=== PATIENT | male | born 1960 | race American Indian/Alaskan Native ===

== ENCOUNTER 2020-01-28 18:24 | Observation (INO) | payer OTHER ==
[2020-01-28] MEDS ORDERED: levETIRAcetam 1000 MG/NS 0.75% 1,000 MG/100 ML BAG IV ONE (18:37)
--- NOTE | 2020-01-28 18:39 | Emergency Department Report ---
ED Seizure HPI - General Chief Complaint: Seizure Stated Complaint: SEIZURE Time Seen by Provider: 01/28/20 18:27 Source: patient, EMS Mode of arrival: Stretcher Limitations: No Limitations - History of Present Illness Initial Comments: Patient is a 59-year-old male that presents emergency room with seizure activity. Patient states he was at work and next he knows he woke up on the floor. Patient states he hit his head on his workbench. Patient has never had a seizure. Patient has no history of seizures. Patient does not complain of headache or head pain. Patient complains of left elbow pain. Patient brought in by EMS. Report received from EMS. EMS states that he lost control of urine during the seizure and the seizure was witnessed by his coworkers. Coworker stated he has had in his elbow on his workstation. EMS describes the seizure as a grand mal seizure with post ictal and loss of consciousness. MD Complaint: seizure -: Sudden Description of Episode: loss of consciousness, tonic-clonic movement, bladder incontinence -: second(s) Witnessed:: Yes Trauma: Yes Seizure History: none Place: work Possible Precipitating Event: none Associated Symptoms: confusion. denies: chest pain, cough, diaphoresis, fever/chills, loss of appetite, malaise, rash, shortness of breath, syncope, weakness, tongue injury, shoulder dislocation Treatments Prior to Arrival: none - Related Data Allergies Allergy/AdvReac Type Severity Reaction Status Date / Time No Known Allergies Allergy Unverified 01/28/20 19:09 ED Review of Systems ROS: Stated complaint: SEIZURE Other details as noted in HPI Constitutional: denies: chills, fever Eyes: denies: eye pain, eye discharge, vision change ENT: denies: ear pain, throat pain Respiratory: denies: cough, shortness of breath, wheezing Cardiovascular: denies: chest pain, palpitations Endocrine: no symptoms reported Gastrointestinal: denies: abdominal pain, nausea, diarrhea Genitourinary: denies: urgency, dysuria Musculoskeletal: denies: back pain, joint swelling, arthralgia Skin: denies: rash, lesions Neurological: as per HPI. denies: headache, weakness, paresthesias Psychiatric: denies: anxiety, depression Hematological/Lymphatic: denies: easy bleeding, easy bruising ED Past Medical Hx - Past Medical History Previous Medical History?: No - Surgical History Past Surgical History?: No - Family History Family history: no significant - Social History Smoking Status: Never Smoker Substance Use Type: None ED Physical Exam - General Limitations: No Limitations General appearance: alert, in no apparent distress - Head Head exam: Present: atraumatic, normocephalic - Eye Eye exam: Present: normal appearance, PERRL, periorbital swelling (Above left eye), periorbital tenderness (Above left eye), other (Abrasion noted above left eye.) Pupils: Present: normal accommodation - ENT ENT exam: Present: mucous membranes moist - Neck Neck exam: Present: normal inspection - Respiratory Respiratory exam: Present: normal lung sounds bilaterally. Absent: respiratory distress, wheezes, rales - Cardiovascular Cardiovascular Exam: Present: regular rate, normal rhythm. Absent: systolic murmur, diastolic murmur, rubs, gallop - GI/Abdominal GI/Abdominal exam: Present: soft, normal bowel sounds. Absent: distended, tenderness, guarding - Rectal Rectal exam: Present: deferred - Extremities Exam Extremities exam: Present: normal inspection - Back Exam Back exam: Present: normal inspection - Neurological Exam Neurological exam: Present: alert, oriented X3 - Psychiatric Psychiatric exam: Present: normal affect, normal mood - Skin Skin exam: Present: warm, dry, normal color, abrasion (Noted above left eye). Absent: rash ED Course Vital Signs 01/28/20 01/28/20 01/28/20 19:16 19:18 19:31 Temperature 97.9 F Pulse Rate 75 73 Respiratory 16 15 Rate Blood Pressure 143/89 Blood Pressure 143/89 [Right] O2 Sat by Pulse 97 98 97 Oximetry 01/28/20 01/28/20 01/28/20 19:49 20:01 20:15 Temperature Pulse Rate 71 63 67 Respiratory 16 16 15 Rate Blood Pressure 143/89 102/72 143/89 Blood Pressure [Right] O2 Sat by Pulse 95 96 97 Oximetry 01/28/20 01/28/20 01/28/20 20:31 20:45 20:53 Temperature Pulse Rate 71 66 76 Respiratory 14 14 17 Rate Blood Pressure 143/89 143/89 143/89 Blood Pressure [Right] O2 Sat by Pulse 98 98 98 Oximetry 01/28/20 01/28/20 01/28/20 21:00 21:11 21:21 Temperature Pulse Rate 65 62 66 Respiratory 17 13 16 Rate Blood Pressure 123/87 123/87 123/87 Blood Pressure [Right] O2 Sat by Pulse 99 97 97 Oximetry 01/28/20 01/28/20 01/28/20 21:31 21:40 21:51 Temperature Pulse Rate 67 66 62 Respiratory 14 10 L 14 Rate Blood Pressure 123/87 123/87 123/87 Blood Pressure [Right] O2 Sat by Pulse 96 99 99 Oximetry 01/28/20 01/28/20 01/28/20 22:00 22:11 22:21 Temperature Pulse Rate 67 62 64 Respiratory 16 14 13 Rate Blood Pressure 123/93 123/93 123/93 Blood Pressure [Right] O2 Sat by Pulse 96 97 97 Oximetry 01/28/20 01/28/20 01/28/20 22:31 22:41 22:51 Temperature Pulse Rate 66 65 63 Respiratory 14 13 16 Rate Blood Pressure 123/93 123/93 123/93 Blood Pressure [Right] O2 Sat by Pulse 97 97 96 Oximetry 01/28/20 01/28/20 01/28/20 23:00 23:02 23:11 Temperature 98.2 F Pulse Rate 63 66 69 Respiratory 12 18 13 Rate Blood Pressure 124/86 124/86 Blood Pressure 123/87 [Right] O2 Sat by Pulse 97 98 97 Oximetry 01/28/20 01/28/20 01/28/20 23:21 23:31 23:41 Temperature Pulse Rate 61 61 64 Respiratory 10 L 12 16 Rate Blood Pressure 124/86 124/86 124/86 Blood Pressure [Right] O2 Sat by Pulse 97 96 98 Oximetry 01/28/20 23:51 Temperature Pulse Rate 59 L Respiratory 12 Rate Blood Pressure 124/86 Blood Pressure [Right] O2 Sat by Pulse 97 Oximetry - Reevaluation(s) Reevaluation #1: I discussed all results with patient. I discussed plan of care with patient. Patient agrees with plan of care and admission. Patient to be admitted to the hospitalist service. 01/28/20 20:35 - Consultations Consultation #1: Hospitalist consulted for admission. Hospitalist to admit patient. 01/28/20 20:35 ED Medical Decision Making - Lab Data Result diagrams: 01/28/20 19:11 01/28/20 19:11 - EKG Data -: EKG Interpreted by Me EKG shows normal: sinus rhythm, axis, intervals, QRS complexes, ST-T waves Rate: normal - Radiology Data Radiology results: report reviewed CT facial bones wo con INDICATION / CLINICAL INFORMATION: 59 years Male; head injury. facial trauma. facial contusion. TECHNIQUE: Thin cut axial images obtained. Sagittal and coronal reconstructions performed. All CT scans at this location are performed using CT dose reduction for ALARA by means of autom ated exposure control. COMPARISON: None available. FINDINGS: Soft tissue swelling is seen in the left lateral orbital region. No signs of underlying facial fracture identified. The globes and retro-orbital structures are normal in appearance bilaterally. Mild mucosal thickening is seen in the ethmoids. Remainder the visualized paranasal sinuses and mastoid air cells are clear. There is canal narrowing at C3-4 from disc disease anteriorly, which slightly encroaches upon the cervical cord. No definitive signs of impingement appreciated. Mild to moderate osseous foraminal narrowing seen bilaterally at this level from uncinate hypertrophy. IMPRESSION: 1. No signs of acute bony facial trauma appreciated CT head/brain wo con INDICATION / CLINICAL INFORMATION: 59 years Male; Seizure. TECHNIQUE: Routine CT head without contrast. All CT scans at this location are performed using CT dose reduction for ALARA by means of automated exposure control. COMPARISON: None. FINDINGS: BRAIN / INTRACRANIAL CONTENTS: Small, branch PICA territory infarcts are seen on the [id number] without diffusion imaging by MRI. Otherwise, no acute hemorrhage, mass effect, midline shift, hydrocephalus, or acute, large territorial infarct. No chronic infarct or atrophy appreciated. There are mild areas of decreased attenuation in the white matter of the cerebral hemispheres. These are nonspecific findings and may be related to microangiopathy (hype rtension, diabetes, a therosclerosis), given the patient's age. CRANIOCERVICAL JUNCTION: No significant abnormality. ORBITS: No significant abnormality of visualized orbits. SINUSES / MASTOIDS: No significant abnormality in the visualized paranasal sinuses or mastoid air cells. ADDITIONAL FINDINGS: Mild soft tissue swelling seen in the left periorbital region. No definitive signs of underlying fracture appreciated. IMPRESSION: 1. No focal mass, intracranial hemorrhage, hydrocephalus, or acute, large territorial infarct. 2. I cannot exclude subacute, small branch PICA territory infarcts on the left, as described above. - Medical Decision Making Patient is a 59-year-old male that presents emergency room for new onset seizures, head injury, facial abrasion, facial trauma, loss of bladder control, confusion. Patient does not have a history of seizure. Patient had a new seizure work-up. Patient CT of the facial bones and head was negative for acute findings. Patient's labs are unremarkable. Patient admitted to the hospital service for further evaluation treatment. Patient did not have any seizure activity in the ER. Patient given Keppra in the ER. - Differential Diagnosis Head injury, fall, facial trauma, facial contusion, new onset seizure, Critical Care Time: Yes Critical care time in (mins) excluding proc time.: 35 Critical care attestation.: If time is entered above; I have spent that time in minutes in the direct care o f this critically ill patient, excluding procedure time. Critical Care Time: 35 minutes ED Disposition Clinical Impression: New onset seizure, Seizure-like activity Head injury Qualifiers: Encounter type: initial encounter Qualified Code(s): S09.90XA - Unspecified injury of head, initial encounter Facial trauma Qualifiers: Encounter type: initial encounter Qualified Code(s): S09.93XA - Unspecified injury of face, initial encounter Facial contusion Qualifiers: Encounter type: initial encounter Qualified Code(s): S00.83XA - Contusion of other part of head, initial encounter Facial abrasion Qualifiers: Encounter type: initial encounter Qualified Code(s): S00.81XA - Abrasion of other part of head, initial encounter Disposition: DC-09 OP ADMIT IP TO THIS HOSP Is pt being admited?: Yes Does the pt Need Aspirin: No Condition: Critical Time of Disposition: 20:37
[2020-01-28 19:39] LABS: Basophils % (Auto) 0.5 % (0.0-1.8); Eosinophils % (Auto) 0.4 % (0.0-4.3); Hematocrit 45.5 % (35.5-45.6); Hemoglobin 14.8 gm/dl (11.8-15.2); Lymphocytes # (Auto) 0.7 K/mm3 (1.2-5.4); Lymphocytes % (Auto) 9.5 % (13.4-35.0); Mean Corpuscular HGB Conc 33 % (32-34); Mean Corpuscular Volume 96 fl (84-94); Monocytes # (Auto) 0.4 K/mm3 (0.0-0.8); Monocytes % (Auto) 5.7 % (0.0-7.3); Platelet Count 193 K/mm3 (140-440); Red Blood Count 4.76 M/mm3 (3.65-5.03); Red Cell Distribution Width 14.6 % (13.2-15.2)
[2020-01-28 19:55] LABS: Alanine Aminotransferase 17 units/L (7-56); BUN/Creatinine Ratio 11; Blood Urea Nitrogen 10 mg/dL (9-20); Calcium 8.9 mg/dL (8.4-10.2); Hemolysis Index 11
--- NOTE | 2020-01-28 20:03 | Cat Scan Report ---
CT head/brain wo con INDICATION / CLINICAL INFORMATION: 59 years Male; Seizure. TECHNIQUE: Routine CT head without contrast. All CT scans at this location are performed using CT dos e reduction for ALARA by means of automated exposure control. COMPARISON: None. FINDINGS: BRAIN / INTRACRANIAL CONTENTS: Small, branch PICA territory infarcts are seen on the [id number]-hthlzxb minate without diffusion imaging by MRI. Otherwise, no acute hemorrhage, mass effect, midline shift, hydrocephalus, or acute, large territori al infarct. No chronic infarct or atrophy appreciated. There are mild areas of decreased attenuation in the white matter of the cerebral hemispheres. These are nonspecific findings and may be related to microangiopathy (hypertension, diabetes, atheroscleros is), given the patient's age. CRANIOCERVICAL JUNCTION: No significant abnormality. ORBITS: No significant abnormality of visualized orbits. SINUSES / MASTOIDS: No significant abnormality in the visualized paranasal sinuses or mastoid air gladis ls. ADDITIONAL FINDINGS: Mild soft tissue swelling seen in the left periorbital region. No definitive sig ns of underlying fracture appreciated. IMPRESSION: 1. No focal mass, intracranial hemorrhage, hydrocephalus, or acute, large territorial infarct. 2. I cannot exclude subacute, small branch PICA territory infarcts on the left, as described above. Signer Name: Mj Parrish MD, III Signed: 01/28/2020 7:59 PM Workstation Name: [id number]
--- NOTE | 2020-01-28 20:10 | Cat Scan Report ---
CT facial bones wo con INDICATION / CLINICAL INFORMATION: 59 years Male; head injury. facial trauma. facial contusion. TECHNIQUE: Thin cut axial images obtained. Sagittal and coronal reconstructions performed. All CT scans at this location are performed using CT dose reduction for ALARA by means of automated exposure control. COMPARISON: None available. FINDINGS: Soft tissue swelling is seen in the left lateral orbital region. No signs of underlying facial fractu re identified. The globes and retro-orbital structures are normal in appearance bilaterally. Mild mucosal thickening is seen in the ethmoids. Remainder the visualized paranasal sinuses and masto id air cells are clear. There is canal narrowing at C3-4 from disc disease anteriorly, which slightly encroaches upon the cer vical cord. No definitive signs of impingement appreciated. Mild to moderate osseous foraminal narrow ing seen bilaterally at this level from uncinate hypertrophy. IMPRESSION: 1. No signs of acute bony facial trauma appreciated. Signer Name: Mj Parrish MD, III Signed: 01/28/2020 8:05 PM Workstation Name: [id number]
[2020-01-28] MEDS ORDERED: MAGNESIUM HYDROXIDE (MOM) ORAL LIQD UDC PO PRN (21:51)
[2020-01-28] MEDS ORDERED: ACETAMINOPHEN 325 MG TAB PO PRN (21:51)
[2020-01-28] MEDS ORDERED: ONDANSETRON 4 MG/2 ML INJ IV PRN (21:51)
--- NOTE | 2020-01-28 22:02 | History and Physical Report ---
History of Present Illness Date of examination: 01/28/20 Date of admission: 01/28/20 21:17 Chief complaint: Seizure disorder History of present illness: 59-year-old -[place] male was brought into the emergency room today having had a seizure activity while at work. He was said to have tonic-clonic seizure at work and hit his head against a workbench. He was said to have had urinary incontinence during seizure activity. Seizure activity was said to be tonic-clonic and was witnessed by alcohol workers. Patient had a post ictal period with a loss of consciousness. Patient denies any history of seizure disorder. He denies any use of illicit drugs. He denied any history of headache or dizziness prior to the seizure activity. He denies any fever or chills, no chest pain or shortness of breath, no nausea vomiting, no diarrhea. Upon arrival in the emergency room patient was evaluated by the tele neurologist and recommendation is to have patient worked up for seizure disorder. He had a CT scan of the head which had questionable findings suggestive of possible subacute CVA. Past History Past Medical History: No medical history Past Surgical History: No surgical history Social history: no significant social history Family history: no significant family history Medications and Allergies Allergies Allergy/AdvReac Type Severity Reaction Status Date / Time No Known Allergies Allergy Unverified 01/28/20 19:09 Active Meds: Active Medications Acetaminophen (Tylenol) 650 mg PO Q4H PRN PRN Reason: Pain MILD(1-3)/Fever >100.5/HERNANDEZ Heparin Sodium (Porcine) (Heparin) 5,000 unit SUB-Q Q8HR JORDAN Levetiracetam 500 mg/ Dextrose 105 mls @ 400 mls/hr IV Q12HR JORDAN Magnesium Hydroxide (Milk Of Magnesia) 30 ml PO Q4H PRN PRN Reason: Constipation Ondansetron HCl (Zofran) 4 mg IV Q8H PRN PRN Reason: Nausea And Vomiting Sodium Chloride (Sodium Chloride Flush Syringe 10 Ml) 10 ml IV BID JORDAN Sodium Chloride (Sodium Chloride Flush Syringe 10 Ml) 10 ml IV PRN PRN PRN Reason: LINE FLUSH Review of Systems Constitutional: no fever, no chills Ears, nose, mouth and throat: no nasal congestion, no sore throat Cardiovascular: no chest pain, no palpitations Respiratory: no cough, no shortness of breath Gastrointestinal: no abdominal pain, no nausea, no vomiting, no diarrhea Genitourinary Male: no dysuria, no hematuria, no flank pain Musculoskeletal: no neck pain, no low back pain Integumentary: no rash, no pruritis Neurological: no headaches, no confusion Psychiatric: no anxiety, no confusion Exam - Constitutional Vitals: Temp Pulse Resp BP Pulse Ox 97.9 F 66 14 143/89 98 01/28/20 19:18 01/28/20 20:45 01/28/20 20:45 01/28/20 20:45 01/28/20 20:45 General appearance: Present: other (Abrasion over left eyebrow.). Absent: no acute distress - EENT Eyes: Absent: PERRL, EOM intact, scleral icterus ENT: no hearing intact, no clear oral mucosa, no dentition normal - Neck Neck: Absent: supple, normal ROM - Respiratory Respiratory effort: normal Respiratory: bilateral: CTA - Cardiovascular Rhythm: regular Heart Sounds: Present: S1 & S2. Absent: systolic murmur, diastolic murmur - Extremities Extremities: no ischemia, pulses intact, pulses symmetrical, No edema, Full ROM Peripheral Pulses: within normal limits - Abdominal General gastrointestinal: Present: soft, non-tender, non-distended - Integumentary Integumentary: Present: clear, warm, dry - Musculoskeletal Musculoskeletal: strength equal bilaterally - Psychiatric Psychiatric: appropriate mood/affect, intact judgment & insight, memory intact, cooperative - Neurologic Neurologic: CNII-XII intact, no focal deficits, moves all extremities Results - Labs CBC & Chem 7: 01/28/20 19:11 01/28/20 19:11 Labs: Abnormal lab results 01/28/20 01/28/20 Range/Units 19:11 19:11 MCV 96 H (84-94) fl Lymph % (Auto) 9.5 L (13.4-35.0) % Lymph # 0.7 L (1.2-5.4) K/mm3 Seg Neutrophils % 83.9 H (40.0-70.0) % Glucose 103 H (75-100) mg/dL Assessment and Plan - Patient Problems (1) New onset seizure Current Visit: Yes Status: Acute Plan to address problem: Patient has been started on Keppra and will be placed on seizure precautions. We will schedule patient for EEG. We will also request neurology follow-up. (2) Facial abrasion Current Visit: Yes Status: Acute Qualifiers: Encounter type: initial encounter Qualified Code(s): S00.81XA - Abrasion of other part of head, initial encounter Plan to address problem: Secondary to the seizure activity. We will dress facial abrasion as needed. (3) DVT prophylaxis Current Visit: Yes Status: Acute Plan to address problem: Patient placed on subcutaneous heparin. (4) Full code status Current Visit: Yes Status: Acute
[2020-01-28] MEDS: levETIRAcetam 500 MG in DEXTROSE 5% IN WATER 100 ML IV SCH (22:03)
[2020-01-28] MEDS ORDERED: HEPARIN 5,000 UNIT/1 ML VIAL ONE (23:12)
[2020-01-28] MEDS: HEPARIN 5,000 UNIT/1 ML VIAL SUB-Q SCH (23:17)
[2020-01-29] MEDS: HEPARIN 5,000 UNIT/1 ML VIAL SUB-Q SCH ×3 (06:03→21:49)
[2020-01-29 08:00] LABS: Basophils % (Auto) 0.8 % (0.0-1.8); Eosinophils # (Auto) 0.1 K/mm3 (0.0-0.4); Eosinophils % (Auto) 1.6 % (0.0-4.3); Hematocrit 43.3 % (35.5-45.6); Hemoglobin 14.9 gm/dl (11.8-15.2); Lymphocytes # (Auto) 1.1 K/mm3 (1.2-5.4); Mean Corpuscular HGB Conc 35 % (32-34); Mean Corpuscular Volume 95 fl (84-94); Monocytes # (Auto) 0.4 K/mm3 (0.0-0.8); Monocytes % (Auto) 7.2 % (0.0-7.3); Platelet Count 189 K/mm3 (140-440); Red Blood Count 4.57 M/mm3 (3.65-5.03); Red Cell Distribution Width 14.4 % (13.2-15.2)
[2020-01-29 08:20] LABS: BUN/Creatinine Ratio 10; Blood Urea Nitrogen 8 mg/dL (9-20); Calcium 8.6 mg/dL (8.4-10.2); Hemolysis Index 4
[2020-01-29 08:36] LABS: INR 1.18 (0.87-1.13)
--- NOTE | 2020-01-29 09:00 | Progress Note ---
Assessment and Plan Assessment and plan: New onset seizure. Neurology consultation pending. Follow-up EEG and MRI. Continue Keppra. Facial abrasion. Wound care. DVT prophylaxis. Continue subcutaneous heparin. History Interval history: No new seizure activity. Hospitalist Physical - Constitutional Vitals: Temp Pulse Resp BP Pulse Ox 98.0 F 58 L 18 118/82 97 01/29/20 04:23 01/29/20 04:23 01/29/20 04:23 01/29/20 04:23 01/29/20 04:23 General appearance: Present: other (Abrasion over left eyebrow.). Absent: no acute distress - EENT Eyes: Present: PERRL, EOM intact ENT: hearing intact, clear oral mucosa, dentition normal - Neck Neck: Present: supple, normal ROM - Respiratory Respiratory effort: normal Respiratory: bilateral: CTA - Cardiovascular Rhythm: regular Heart Sounds: Present: S1 & S2. Absent: gallop, rub - Extremities Extremities: no ischemia, No edema, Full ROM - Abdominal General gastrointestinal: soft, non-tender, non-distended, normal bowel sounds - Integumentary Integumentary: Present: clear, warm, dry - Neurologic Neurologic: CNII-XII intact, moves all extremities Results - Labs CBC & Chem 7: 01/29/20 07:29 01/29/20 07:29 Labs: Laboratory Last Values WBC 5.7 K/mm3 (4.5-11.0) 01/29/20 07:29 RBC 4.57 M/mm3 (3.65-5.03) 01/29/20 07:29 Hgb 14.9 gm/dl (11.8-15.2) 01/29/20 07:29 Hct 43.3 % (35.5-45.6) 01/29/20 07:29 MCV 95 fl (84-94) H 01/29/20 07: MCH 33 pg (28-32) H 01/29/20 07: MCHC 35 % (32-34) H 01/29/20 07:29 RDW 14.4 % (13.2-15.2) 01/29/20 07:29 Plt Count 189 K/mm3 (140-440) 01/29/20 07: Lymph % (Auto) 19.0 % (13.4-35.0) 01/29/20 07:29 [place] % (Auto) 7.2 % (0.0-7.3) 01/29/20 07: Eos % (Auto) 1.6 % (0.0-4.3) 01/29/20 07:29 Baso % (Auto) 0.8 % (0.0-1.8) 01/29/20 07: Lymph # 1.1 K/mm3 (1.2-5.4) L 01/29/20 07: [place] # 0.4 K/mm3 (0.0-0.8) 01/29/20 07: Eos # 0.1 K/mm3 (0.0-0.4) 01/29/20 07: Baso # 0.0 K/mm3 (0.0-0.1) 01/29/20 07: Seg Neutrophils % 71.4 % (40.0-70.0) H 01/29/20 07: Seg Neutrophils # 4.0 K/mm3 (1.8-7.7) 01/29/20 07: PT 14.8 Sec. (12.2-14.9) 01/29/20 07: INR 1.18 (0.87-1.13) H 01/29/20 07: Sodium 139 mmol/L (137-145) 01/29/20 07: Potassium 3.8 mmol/L (3.6-5.0) 01/29/20 07: Chloride 104.0 mmol/L (98-107) 01/29/20 07: Carbon Dioxide 25 mmol/L (22-30) 01/29/20 07:29 Anion Gap 14 mmol/L 01/29/20 07:29 BUN 8 mg/dL (9-20) L 01/29/20 07: Creatinine 0.8 mg/dL (0.8-1.5) 01/29/20 07:29 Estimated GFR > 60 ml/min 01/29/20 07:29 BUN/Creatinine Ratio 10 % 01/29/20 07: Glucose 99 mg/dL (75-100) 01/29/20 07: Calcium 8.6 mg/dL (8.4-10.2) 01/29/20 07: Total Bilirubin 0.50 mg/dL (0.1-1.2) 01/28/20 19:11 AST 21 units/L (5-40) 01/28/20 19:11 ALT 17 units/L (7-56) 01/28/20 19:11 Alkaline Phosphatase 42 units/L (35-129) 01/28/20 19:11 Total Protein 6.5 g/dL (6.3-8.2) 01/28/20 19:11 Albumin 4.0 g/dL (3.9-5) 01/28/20 19:11 Albumin/Globulin Ratio 1.6 % 01/28/20 19:11 Lo/IV: Voiding Method Urinal IV Catheter Type [Left Hand] INT / Saline Lock Active Medications - Current Medications Current Medications: Generic Name Dose Route Start Last Admin Trade Name Freq PRN Reason Stop Dose Admin Acetaminophen 650 mg 01/28/20 21:51 Tylenol PO Q4H PRN Pain MILD(1-3)/Fever >100.5/HERNANDEZ Heparin Sodium (Porcine) 5,000 unit 01/28/20 22:00 01/29/20 06:03 Heparin SUB-Q 5,000 unit Q8HR JORDAN Administration Levetiracetam 500 mg/ Dextrose 105 mls @ 400 mls/hr 01/28/20 22:00 01/28/20 22:03 IV 400 mls/hr Q12HR JORDAN Administration Magnesium Hydroxide 30 ml 01/28/20 21:51 Milk Of Magnesia PO Q4H PRN Constipation Ondansetron HCl 4 mg 01/28/20 21:51 Zofran IV Q8H PRN Nausea And Vomiting Sodium Chloride 10 ml 01/28/20 22:00 01/28/20 22:03 Sodium Chloride Flush Syringe 10 Ml IV 10 ml BID JORDAN Administration Sodium Chloride 10 ml 01/28/20 21:51 Sodium Chloride Flush Syringe 10 Ml IV PRN PRN LINE FLUSH
[2020-01-29] MEDS ORDERED: LORazepam 2 MG/ML VIAL IV ONE (11:00)
[2020-01-29] MEDS: levETIRAcetam 500 MG in DEXTROSE 5% IN WATER 100 ML IV SCH (13:06)
--- NOTE | 2020-01-29 14:40 | Consultation ---
History of Present Illness Consult date: 01/29/20 Reason for Consult: Seizure Chief complaint: Seizure History of present illness: Patient is a 59 y/o man w/ no PMH. He presented yesterday after was noted to have what was described as a tonic clonic seizure while at work. Patient reportedly had convulsions, a/w loss of bladder control, and hit his head on a bench during the seizure. Patient was also noted to have post-ictal confusion. He was brought to [facility] for further evaluation. He states that he moved to [place] in February 2019, and he believes he has had 2 previous episodes of LOC since that time, during which he found himself on the floor. Those previous e pisodes were not related loss of bowel/bladder control or tongue biting. Past History Past Medical History: No medical history Past Surgical History: No surgical history Social history: no significant social history Family history: no significant family history Medications and Allergies Allergies Allergy/AdvReac Type Severity Reaction Status Date / Time No Known Allergies Allergy Unverified 01/28/20 19:09 Active Meds: Active Medications Acetaminophen (Tylenol) 650 mg PO Q4H PRN PRN Reason: Pain MILD(1-3)/Fever >100.5/HERNANDEZ Heparin Sodium (Porcine) (Heparin) 5,000 unit SUB-Q Q8HR [facility] Last Admin: 01/29/20 14:25 Dose: 5,000 unit Documented by: Levetiracetam 500 mg/ Dextrose 105 mls @ 400 mls/hr IV Q12HR [facility] Last Admin: 01/29/20 13:06 Dose: 400 mls/hr Documented by: Magnesium Hydroxide (Milk Of Magnesia) 30 ml PO Q4H PRN PRN Reason: Constipation Ondansetron HCl (Zofran) 4 mg IV Q8H PRN PRN Reason: Nausea And Vomiting Sodium Chloride (Sodium Chloride Flush Syringe 10 Ml) 10 ml IV BID [facility] Last Admin: 01/29/20 13:06 Dose: 10 ml Documented by: Sodium Chloride (Sodium Chloride Flush Syringe 10 Ml) 10 ml IV PRN PRN PRN Reason: LINE FLUSH Review of Systems All systems: negative Neurological: seizures Physical Examination - Vital Signs Vital Signs: Vital Signs Pulse Ox 97 01/28/20 19:16 - Physical Exam Narrative exam: Patient is alert, awake, oriented x4, follows complex commands. No dysarthria or aphasia noted. PERRL, EOMI, VFF, tongue midline, bilaterally intact to LT, no facial weakness noted. 5/5 strength in all extremities. Bilaterally intact light touch. Bilaterally intact to FTN and HTS. Results - Laboratory Findings CBC and BMP: 01/29/20 07:29 01/29/20 07:29 Abnormal Lab Findings: Abnormal Labs 01/28/20 01/28/20 01/29/20 19:11 19:11 07:29 MCV 96 H 95 H MCH 33 H MCHC 35 H Lymph % (Auto) 9.5 L Lymph # 0.7 L 1.1 L Seg Neutrophils % 83.9 H 71.4 H INR BUN Glucose 103 H 01/29/20 01/29/20 07:29 07:29 MCV MCH MCHC Lymph % (Auto) Lymph # Seg Neutrophils % INR 1.18 H BUN 8 L Glucose Assessment and Plan Patient is a 59 y/o man w/ no PMH who p/w episode of LOC and convulsions. According to the patient's clinical findings, it is likely that he has had a seizure. Plan: 1. Seizure: - CT head: No acute abnormalities. - Check EEG- to be interpreted by in-house neurologist. - Check MRI brain: on initial review does not appear to have any acute ab normalities. Final report pending from radiology. - Discussed with patient regarding starting keppra. Discussed risks/benefits, and patient agreed to continuing keppra. - Discussed with patient regarding no driving until cleared by DMV/DPS. Patient understood and accepted this. Further discussed seizure precautions. - If patient has a seizure lasting >2 minutes, recommend giving ativan 1mg IV s tat. If seizure does not resolve within 2 minutes, can repeat x1. Please call primary team and neurology stat if patient has a seizure. - Recommend for patient to follow up with neurologist in clinic in 3-4 weeks. - Will sign off, as I am not covering neurology service over the weekend. Please consult neurologist covering the service over the weekend for further neurologic monitoring and management. Thank you for allowing me to take part in the care of this patient. Russel Stein MD Neurology This clinical encounter was provided via live telemedicine platform. Consultative service was provided for neurology to support local providers. The Acute Teleneurology team should be contacted with any neurologic worsening or clinical changes, new test results, or new patient history that is reported to or discovered by the local team following completion of the teleneurology consultation, specifically that which has the potential to impact the consultative recommendations. Patient/Family was informed the Neurology Consult would happen via TeleHealth consult by way of interactive audio and video telecommunications and consented to receiving care in this manner. Due to the potential for life-threatening deterioration due to underlying neurologic illness, and limited resources available for patient care, telemedicine was used as means of patient care. Telemedicine consultation is limited in the extent of physical exam that can be virtually provided. Time spent evaluating patient includes time for face to face visit via telemedicine, review of medical records, imaging studies and discussion of findings with providers, the patient and/or family.
--- NOTE | 2020-01-29 15:08 | Magnetic Resonance Report ---
MRI BRAIN WITHOUT CONTRAST INDICATION / CLINICAL INFORMATION: SEIZURES. ABNORMAL FINDINGS ON HEAD CT.. TECHNIQUE: Multiplanar, multisequence MR images of the brain were obtained. COMPARISON: Head CT 01/28/2020 FINDINGS: BRAIN / INTRACRANIAL CONTENTS: Ventricles and cortical sulci are normal in size and configuration. Th ere is no mass effect. No evidence of intracranial hemorrhage or extra-axial fluid collection is seen . Periventricular and deep white matter hyperintensities are noted in both cerebral hemispheres consi stent with microvascular ischemic change. No additional areas of abnormal brain parenchymal signal in tensity are identified. There is no indication of remote cortical infarction. Diffusion weighted scan s are negative. There is no indication of acute ischemic injury. There is evidence of a remote small deep pontine infarction located to the left of midline. There are findings of a remote small deep infarction in the white matter of the left cerebellar hemisphere. MIDLINE STRUCTURES:No abnormalities are seen to involve the pituitary gland. Pineal region has an unr emarkable appearance. CRANIOCERVICAL JUNCTION: No abnormalities are identified at the craniocervical junction. VASCULAR FLOW-VOIDS: Normal flow-voids are present within the major intracranial vessels. ORBITS: The orbits have an unremarkable appearance. SINUSES / MASTOIDS: There is no indication of inflammatory disease in the paranasal sinuses or mastoi d air cells. IMPRESSION: 1. Moderate microvascular ischemic change. 2. No evidence of recent or remote infarction involving the cerebral hemispheres. 3. 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 Signer Name: Hawk Martin MD Signed: 01/29/2020 3:04 PM Workstation Name: [id number]
[2020-01-29] MEDS: levETIRAcetam 500 MG TAB PO SCH ×2 (17:16→21:49)
[2020-01-29 17:39] LABS: Bilirubin,Urine NEG (Negative); Blood,Urine NEG (Negative); Color,Urine Yellow (Yellow); Mucus,Urine FEW /HPF; Protein,Urine <15 mg/dL mg/dL (Negative); Urobilinogen,Urine < 2.0 mg/dL (<2.0); WBC,Urine < 1.0 /HPF (0.0-6.0)
[2020-01-29 17:47] LABS: Amphetamine Screen,Urine Negative; Benzodiazepines Screen,Urine Negative; Cocaine Screen,Urine Negative; Methadone Screen,Urine Negative; Opiate Screen,Urine Negative
[2020-01-29 18:04] LABS: Cannabinoid Screen,Urine Positive
[2020-01-30] MEDS: HEPARIN 5,000 UNIT/1 ML VIAL SUB-Q SCH (05:18)
--- NOTE | 2020-01-30 08:18 | Discharge Summary ---
Providers - Providers Date of Admission: 01/28/20 21:17 Date of discharge: 01/30/20 Attending physician: REBECCA ZAPATA 01/28/20 21:51 Consult to Physician [CONS] Routine Comment: Consulting Provider: THALIA COTTON Physician Instructions: Reason For Exam: SEIZURES- NEW ONSET Primary care physician: [employer] Hospitalization Reason for admission: New onset seizure Condition: Critical Hospital course: Patient is a 59 y/o man w/ no PMH presented on 01/28/2020 after a tonic clonic seizure while at work. Patient reportedly had convulsions, a/w loss of bladder control, and hit his head on a bench during the seizure. Patient was also noted to have post-ictal confusion. He was brought to [facility] for further evaluation. He states that he moved to [place] in February 2019, and he believes he has had 2 previous episodes of LOC since that time, during which he found himself on the floor. Those previous episodes were not related loss of bowel/bladder control or tongue biting. The patient was admitted with diagnosis of new onset seizure disorder. CT scan of the head showed no acute abnormalities. MRI did not reveal any acute findings but remote small deep pontine infarction. The patient was started on Keppra and had no further seizure activity during hospitalization. Neurology discussed with the patient regarding no driving until cleared by DMV/DPS. Patient understood and accepted this. Further discussed seizure precautions. The patient is felt to have received maximal hospital benefit. Dedicated discharge time 35 minutes Disposition: DC-01 TO HOME OR SELFCARE Time spent for discharge: 35 - Discharge Diagnoses (1) Facial abrasion Status: Acute Qualifiers: Encounter type: initial encounter Qualified Code(s): S00.81XA - Abrasion of other part of head, initial encounter (2) New onset seizure Status: Acute Core Measure Documentation - Palliative Care Palliative Care/ Comfort Measures: Not Applicable - Core Measures Any of the following diagnoses?: none Exam - Constitutional Vitals: Temp Pulse Resp BP Pulse Ox 98.5 F 64 18 115/70 97 01/30/20 05:23 01/30/20 05:23 01/30/20 07:48 01/30/20 05:23 01/30/20 05:23 General appearance: Present: no acute distress, well-nourished - EENT Eyes: Present: PERRL ENT: hearing intact, clear oral mucosa - Neck Neck: Present: supple, normal ROM - Respiratory Respiratory effort: normal Respiratory: bilateral: CTA - Cardiovascular Heart Sounds: Present: S1 & S2. Absent: rub, click - Extremities Extremities: pulses symmetrical, No edema Peripheral Pulses: within normal limits - Abdominal General gastrointestinal: Present: soft, non-tender, non-distended, normal bowel sounds Male genitourinary: Present: normal - Integumentary Integumentary: Present: clear, warm, dry - Musculoskeletal Musculoskeletal: gait normal, strength equal bilaterally - Psychiatric Psychiatric: appropriate mood/affect, intact judgment & insight - Neurologic Neurologic: CNII-XII intact, moves all extremities Plan Activity: advance as tolerated, no driving until cleared by PCP Weight Bearing Status: Weight Bear as Tolerated Diet: low fat, low cholesterol, low salt Follow up with: PRIMARY CARE, [Primary Care Provider] - 3-5 Days THALIA COTTON MD [Staff Physician] - 7 Days Prescriptions: Aspirin [Aspirin BABY CHEW TAB] 81 mg PO QDAY #30 tab.chew levETIRAcetam [Keppra TAB] 750 mg PO BID #60 tablet AtorvaSTATin [Lipitor] 40 mg PO QHS #30 tab
[2020-01-30] MEDS: levETIRAcetam 500 MG TAB PO SCH (09:14)
[2020-01-30 09:17] VITALS: BP 110/69
== END 2020-01-30 12:53 | disposition home or self-care (01) ==
LOC: ED 18:24 → 4A 21:17
PROVIDERS: ADMIT Internal Medicine Geriatric Medicine; ATTEND Hospitalist
DX: R56.9 Unspecified convulsions (principal); S09.90XA Unspecified injury of head, initial encounter; S00.212A Abrasion of left eyelid and periocular area, initial encounter; Z79.899 Other long term (current) drug therapy; W22.8XXA Striking against or struck by other objects, initial encounter; Y93.89 Activity, other specified; Y92.89 Other specified places as the place of occurrence of the external cause; Y99.8 Other external cause status
CPT/HCPCS: 36415; 70450; 70486; 70551; 80048; 80053; 80307; 81001; 85025; 85610; 93005; 95819; 96372; 96374; 96375; 96376; 99291; G0378; J1644; J1953; J2060